=== PATIENT | female | born 1985 | race Two or more races ===

== ENCOUNTER 2018-05-28 13:00 | Inpatient (IN) | payer OTHER ==
[~2018-05-28] VITALS: Ht 160 cm; Wt 54.4 kg
== END 2018-06-07 18:51 | disposition home or self-care (01) | DRG 331 ==
LOC: O/R 06-04 07:00 → SURH 06-04 07:00 → SURG 06-04 07:00 → SURH 06-04 13:00 → SURG 06-04 17:21
PROVIDERS: ADMIT Colon & Rectal Surgery
PROC: 0DJD8ZZ Inspection of Lower Intestinal Tract, Via Natural or Artificial Opening Endoscopic (ICD-10-PCS; 2018-06-04)
PROC: 0DTN4ZZ Resection of Sigmoid Colon, Percutaneous Endoscopic Approach (ICD-10-PCS; principal; 2018-06-04 07:00)
DX: K57.32 Diverticulitis of large intestine without perforation or abscess without bleeding (principal); E83.42 Hypomagnesemia; E83.51 Hypocalcemia; M62.838 Other muscle spasm